=== PATIENT | female | born 1975 | race African-American/Black ===

== ENCOUNTER 2023-12-18 21:24 | Emergency (ER) | payer OTHER, SELFPAY ==
--- NOTE | ~2023-12-18 | XR_ITS ---
EXAM: XR knee RT min 4V DATE: 12/18/2023 21:54 HISTORY: KNEE POPPED FELL PAIN TO ENTIRE KNEE UNABLE TO BEAR WEIGHT . COMPARISON: None available. FINDINGS: Normal mineralization. No fracture or dislocation. No lytic or blastic lesion. Mild tricom partmental osteoarthritis. Mild quadriceps and patellar enthesopathy. No erosion or periosteal change . Soft tissues within normal limits. IMPRESSION: No acute osseous finding in the right knee. Reviewed, dictated and finalized at location [facility].
[2023-12-18 21:30] VITALS: BP 149/76; PULSE 81; RESP 17; TEMP 36.4; O2SAT 99
--- NOTE | 2023-12-19 01:16 | ED.LOWEXIN ---
HPI - Extremity Injury (Lower) General Chief Complaint: Extremity Injury, Lower Stated Complaint: knee pain/injury Time Seen by Provider: 12/19/23 01:02 Source: patient Mode of arrival: ambulatory Limitations: no limitations History of Present Illness HPI Narrative: Patient is a 48-year-old female who presents the ED with report of right knee pain. Patient reports she went to step up on a curb this evening with her right leg which she felt her knee pop and give out on her. She fell to the ground, but did not land on the knee. She reports history of similar injury to right knee last year and underwent physical therapy for this. States she has been unable to bear much weight on her right leg due to the pain. Took naproxen prior to arrival without relief. Denies numbness or tingling. Related Data Allergies Allergy/AdvReac Type Severity Reaction Status Date / Time baclofen Allergy Intermediate sob Verified 12/18/23 21:25 Review of Systems Review of Systems: CONSTITUTIONAL: Denies fever, chills, or sweats. MUSCULOSKELETAL: See HPI. NEUROLOGIC: Denies headache, dizziness, numbness, or weakness. All systems reviewed & are unremarkable except as noted in HPI and below [facility] Past Medical History Medical History Acute pain of right knee Exam Narrative: GENERAL: Well appearing, obese with BMI of 37.6, non-toxic, in no acute distress. HEAD: Normocephalic, atraumatic. RESPIRATORY: Airway patent, respirations nonlabored. CARDIOVASCULAR: Regular rate and rhythm without murmurs, rubs, or gallops. Pedal pulses strong and easily palpable. MUSCULOSKELETAL: Moves all extremities. No gross deformities. Mild tenderness throughout lateral right knee joint space, no significant swelling. No lower extremity swelling or calf tenderness. Sensation intact. No wounds. SKIN: Warm, dry, normal color. NEURO: A&O X3. Speech clear. PSYCHIATRIC: Appropriate mood and affect. Normal interaction. Course Vital Signs Vital signs: Vital Signs Temperature 97.6 F 12/18/23 21:30 Pulse Rate 81 12/18/23 21:30 Respiratory Rate 17 12/18/23 21:30 Blood Pressure 149/76 H 12/18/23 21:30 Pulse Oximetry 99 12/18/23 21:30 Oxygen Delivery Room Air 12/18/23 21:30 Temperature 97.6 F 12/18/23 21:30 Pulse Rate 80 12/19/23 01:56 Respiratory Rate 15 12/19/23 01:56 Blood Pressure 146/88 H 12/19/23 01:56 Pulse Oximetry 97 12/19/23 01:56 Oxygen Delivery Room Air 12/18/23 21:30 MDM - Extremity Injury (Lower) MDM Narrative Medical decision making narrative: Patient?s injury is consistent with musculoskeletal etiology. No signs of neurologic or vascular compromise on physical examination. Compartments are soft without signs of compartment syndrome. XR negative, no osseous abnormality, no joint effusion. Pain is consistent with exam and injury. Patient is felt to be stable for discharge home and further outpatient management and treatment. Patient given knee immobilizer and crutches in the ED. Will refer to orthopedics for further evaluation. Advised patient to continue anti-inflammatories, rice therapy. Given return precautions. Discharged in stable condition. Medical Records Attestation: I reviewed the patient's medical records. Imaging Data Attestation: I personally reviewed and interpreted this imaging study as follows: Radiologist's impression: ITS Impressions Knee X-Ray 12/18/23 22:11 IMPRESSION: No acute osseous finding in the right knee. Discharge Plan Discharge Clinical Impression: Acute pain of right knee Patient Disposition: Home, Self-Care Condition: Stable Instructions: Antibiotic Form, Knee Sprain (ED), P.R.I.C.E. Treatment (ED) Additional Instructions: Recommend rest, ice to knee, elevation of leg. Continue Tylenol and ibuprofen as needed for pain. [place] as needed for more severe pain. Follow-up w
[2023-12-19] MEDS: ONDANSETRON HCL ODT 4 MG TABLET PO (01:25)
[2023-12-19] MEDS: HYDROcodone/acetaminophen (*CRX) 5-325 MG TABLET 1 TAB PO (01:25)
[2023-12-19 01:56] VITALS: BP 146/88; PULSE 80; RESP 15; O2SAT 97
== END 2023-12-19 01:57 | disposition home or self-care (01) ==
PROVIDERS: Emergency Provider Physician Assistant
DX: M25.561 Pain in right knee (principal)
CPT/HCPCS: 73564; 99283; A9270